=== PATIENT | female | born 1970 | race Caucasian/White ===

== ENCOUNTER → 2016-09-21 | Outpatient (CLI) | payer BC | END | disposition disaster alternative care site (69) | LOC: GLAB 09:27 | DX: D49.7 Neoplasm of unspecified behavior of endocrine glands and other parts of nervous system (principal) ==

== ENCOUNTER → 2016-12-25 | Outpatient (CLI) | payer BC ==
[2016-12-25 16:26] LABS: CREATININE 0.8 mg/dL (0.5-1.1); ESTIMATED GFR (MDRD EQUATION) > 60
== END | disposition disaster alternative care site (69) ==
LOC: GLAB 10:00
PROVIDERS: Neurological Surgery
DX: D35.2 Benign neoplasm of pituitary gland (principal)

== ENCOUNTER → 2016-12-26 | Outpatient (CLI) | payer BC | END | disposition disaster alternative care site (69) | LOC: GRAD 14:52 | DX: D35.2 Benign neoplasm of pituitary gland (principal) | CPT/HCPCS: A9577 ==

== ENCOUNTER → 2017-04-05 | Outpatient (CLI) | payer BC | END | disposition disaster alternative care site (69) | LOC: GLAB 08:00 | DX: D49.7 Neoplasm of unspecified behavior of endocrine glands and other parts of nervous system (principal) ==